=== PATIENT | female | born 1950 | race Caucasian/White ===

== ENCOUNTER → 2017-08-30 | Outpatient (CLI) | payer BC | END | disposition home or self-care (01) | LOC: MAMMO 13:43 | DX: Z12.31 Encounter for screening mammogram for malignant neoplasm of breast (principal) ==

== ENCOUNTER → 2020-03-05 | Outpatient (CLI) | payer MEDICARE | END | disposition home or self-care (01) | LOC: MAMMO 00:28 | PROVIDERS: ATTEND Family Medicine | DX: Z12.31 Encounter for screening mammogram for malignant neoplasm of breast (principal); N64.89 Other specified disorders of breast ==

== ENCOUNTER → 2021-09-30 | Outpatient (CLI) | payer MEDICARE | END | disposition home or self-care (01) | LOC: MAMMO 01:26 | PROVIDERS: ATTEND Internal Medicine | DX: Z12.31 Encounter for screening mammogram for malignant neoplasm of breast (principal) ==

== ENCOUNTER 2022-05-04 20:11 | Emergency (ER) | payer MEDICARE ==
[~2022-05-04] VITALS: Ht 157.4 cm; Wt 85.7 kg
[2022-05-04] MEDS ORDERED: ASPIRIN ADULT L81 M1 PO (20:35)
[2022-05-04] MEDS ORDERED: METOPROLOL SUCC50 M2 PO (20:36)
[2022-05-04] MEDS ORDERED: LISINOPRIL5 MG PO (20:36)
[2022-05-04] MEDS ORDERED: VITAMIN D310 MC3 PO (20:36)
[2022-05-04 21:07] LABS: BASO % 0.2 % (0.0-1.0); EOS % 0.1 % (1.0-4.0); HEMATOCRIT 36.6 % (37.0-47.0); LYMPH # 1.4 10*3/uL (1.3-4.4); LYMPH % 8.5 % (27.0-41.0); MEAN CELL VOLUME 89.1 fl (81.0-99.0); MEAN CORPUSCULAR HGB 29.4 pg (27.0-31.0); MEAN CORPUSCULAR HGB CONC 33.1 g/dl (33.0-37.0); MEAN PLATELET VOLUME 9.7 fl (9.6-12.3); MONO # 0.7 10*3/uL (0.1-1.0); MONO % 3.9 % (3.0-9.0); NEUT # 14.7 10*3/uL (2.3-7.9); NEUT % 86.9 % (47.0-73.0); PLATELET COUNT AUTOMATED 299 10*3/uL (130-400); RED BLOOD COUNT 4.11 10*6/uL (4.10-5.10); RED CELL DISTRI WIDTH 12.8 % (0-14.5); WHITE BLOOD COUNT 16.9 10*3/uL (4.8-10.8)
[2022-05-04 21:39] LABS: ALKALINE PHOSPHATASE 75 U/L (46-116); BUN 14 mg/dl (9-23); CHLORIDE 98 mmol/L (98-107); POTASSIUM 3.6 mmol/L (3.4-5.1); SGPT/ALT 22 U/L (10-49); TOTAL PROTEIN 7.3 gm/dL (6.0-8.0)
[2022-05-04 23:37] LABS: BILIRUBIN Negative (Negative); BLOOD 2+ (Negative); CLARITY Clear (Clear); COLOR Yellow (Yellow); GLUCOSE Negative (Negative); KETONE Trace (Negative); LEUKO ESTERASE Negative (Negative); NITRITE Negative (Negative); PH 6.5 (4.5-8.0); UROBILINOGEN 0.2 E.U./dl (0.0-1.0)
[2022-05-04 23:49] LABS: RBC 16-20 rbc/hpf (0-2); WBC 0-2 wbc/hpf (0-5)
== END 2022-05-05 01:39 | disposition short-term general hospital (02) ==
LOC: ED 20:11
PROVIDERS: Emergency Medicine
DX: N13.2 Hydronephrosis with renal and ureteral calculous obstruction (principal); Z20.822 Contact with and (suspected) exposure to COVID-19; I10 Essential (primary) hypertension; Z79.899 Other long term (current) drug therapy; Z79.82 Long term (current) use of aspirin; Z90.89 Acquired absence of other organs; Z98.51 Tubal ligation status; Z90.710 Acquired absence of both cervix and uterus

== ENCOUNTER → 2022-06-07 | Outpatient (CLI) | payer MEDICARE ==
[~2022-06-07] MED LIST: ASPIRIN ADULT L81 M1 PO; LISINOPRIL5 MG PO; METOPROLOL SUCC50 M2 PO; VITAMIN D310 MC3 PO
== END | disposition home or self-care (01) ==
LOC: RAD 13:59
PROVIDERS: ATTEND Urology
DX: N20.0 Calculus of kidney (principal); Z96.0 Presence of urogenital implants

== ENCOUNTER → 2022-06-28 | Outpatient (CLI) | payer MEDICARE | END | disposition home or self-care (01) | LOC: RAD 11:57 | PROVIDERS: ATTEND Urology | DX: N20.0 Calculus of kidney (principal) ==

== ENCOUNTER → 2022-07-01 | Outpatient (CLI) | payer MEDICARE ==
[2022-07-01 07:50] LABS: BASO % 0.3 % (0.0-1.0); EOS # 0.1 10*3/uL (0.0-0.4); EOS % 1.4 % (1.0-4.0); HEMATOCRIT 37.1 % (37.0-47.0); LYMPH # 1.6 10*3/uL (1.3-4.4); LYMPH % 18.5 % (27.0-41.0); MEAN CELL VOLUME 88.5 fl (81.0-99.0); MEAN CORPUSCULAR HGB 29.8 pg (27.0-31.0); MEAN CORPUSCULAR HGB CONC 33.7 g/dl (33.0-37.0); MEAN PLATELET VOLUME 10.1 fl (9.6-12.3); MONO # 0.5 10*3/uL (0.1-1.0); MONO % 5.5 % (3.0-9.0); NEUT # 6.4 10*3/uL (2.3-7.9); NEUT % 74.2 % (47.0-73.0); PLATELET COUNT AUTOMATED 321 10*3/uL (130-400); RED BLOOD COUNT 4.19 10*6/uL (4.10-5.10); RED CELL DISTRI WIDTH 12.9 % (0-14.5); WHITE BLOOD COUNT 8.7 10*3/uL (4.8-10.8)
[2022-07-01 07:50] LABS: BILIRUBIN Negative (Negative); BLOOD Negative (Negative); CLARITY Clear (Clear); COLOR Yellow (Yellow); GLUCOSE Negative (Negative); KETONE Negative (Negative); LEUKO ESTERASE Trace (Negative); NITRITE Negative (Negative); PH 6.5 (4.5-8.0); SPECIFIC GRAVITY 1.015 (1.001-1.030)
[2022-07-01 08:06] LABS: BACTERIA 1+; EPITHELIAL CELLS 31-40
[2022-07-01 08:07] LABS: ALKALINE PHOSPHATASE 69 U/L (46-116); BUN 11 mg/dl (9-23); CHLORIDE 100 mmol/L (98-107); POTASSIUM 3.8 mmol/L (3.4-5.1); SGPT/ALT 20 U/L (10-49); T3 UPTAKE 25.6 % (22.4-36.7); THYROXINE (T4) TOTAL 8.7 ug/dl (4.5-10.9); TOTAL PROTEIN 7.1 gm/dL (6.0-8.0)
== END | disposition home or self-care (01) ==
LOC: LAB 07:14
PROVIDERS: ATTEND Urology
DX: N20.0 Calculus of kidney (principal); R31.9 Hematuria, unspecified

== ENCOUNTER → 2022-07-04 | Outpatient (CLI) | payer MEDICARE ==
[2022-07-10 22:05] LABS: BUSHITE 0.25 ratio (0.00-3.00); CALCIUM OXALATE 0.64 ratio (0.00-6.00); CALCIUM, URINE 2.5 mg/dL (Not Estab.); CALCIUM, URINE 43.8 mg/24 hr (0.0-320.0); CITRIC ACID (CITRATE) 282 mg/24 hr (320-1240); CREATININE, URINE 41.4 mg/dL (Not Estab.); CREATININE, URINE 724.5 mg/24 hr (800.0-1800.0); MAGNESIUM, URINE 1.4 mg/dL (Not Estab.); OSMOLALITY, URINE 189 (300-900); SODIUM, URINE 35 mmol/L (Not Estab.); SODIUM, URINE 61 (39-258); STRUVITE 0.01 ratio (0.00-1.00); URIC ACID 0.17 ratio (0.00-1.20); pH 24 HR URINE 6.6 (4.5-8.0)
== END | disposition home or self-care (01) ==
LOC: LAB 07:37
PROVIDERS: ATTEND Urology
DX: N20.0 Calculus of kidney (principal); R31.9 Hematuria, unspecified

== ENCOUNTER → 2022-07-27 | Outpatient (CLI) | payer MEDICARE | END | disposition home or self-care (01) | LOC: US 01:06 | PROVIDERS: ATTEND Urology | DX: N28.1 Cyst of kidney, acquired (principal); N20.0 Calculus of kidney; N32.89 Other specified disorders of bladder; Z98.890 Other specified postprocedural states ==

== ENCOUNTER → 2022-09-19 | Day surgery (SDC) | payer MEDICARE ==
[2022-09-16 13:35] VITALS: BP 135/56
[2022-09-16 15:49] LABS: BUN 12 mg/dl (9-23); CHLORIDE 98 mmol/L (98-107); POTASSIUM 4.1 mmol/L (3.4-5.1)
[~2022-09-19] VITALS: Ht 157.4 cm; Wt 78.9 kg
[~2022-09-19] MED LIST changes: +ALLEGRA ALLERGY60 M2 PO; +ANTIVERT25 M2 PO; +FLONASE ALLERG9.9 ML NAS; +FOSAMAX70 M1 PO; +HYDROCODONE-AC1 EAC1 PO; +LIPITOR40 MG PO; +ONDANSETRON HYDR4 M1 PO; +POTASSIUM CITRA5 MEQ PO
[2022-09-19 10:15] VITALS: BP 135/57
[2022-09-19 12:16] VITALS: BP 125/58
[2022-09-19 12:31] VITALS: BP 126/66
[2022-09-19 12:46] VITALS: BP 131/65
[2022-09-19 13:01] VITALS: BP 133/56
[2022-09-19 13:16] VITALS: BP 134/68
== END ==
LOC: SDC 09-16 13:15
PROVIDERS: ATTEND Surgery
DX: K61.2 Anorectal abscess (principal); I10 Essential (primary) hypertension; E78.00 Pure hypercholesterolemia, unspecified

== ENCOUNTER → 2023-01-25 | Outpatient (CLI) | payer MEDICARE | END | disposition home or self-care (01) | LOC: MAMMO 01:46 | PROVIDERS: ATTEND Internal Medicine | DX: Z12.31 Encounter for screening mammogram for malignant neoplasm of breast (principal) ==

== ENCOUNTER → 2023-02-20 | Day surgery (SDC) | payer MEDICARE ==
[~2023-02-20] VITALS: Ht 157.4 cm; Wt 79.4 kg
[2023-02-20 09:17] VITALS: BP 108/87
[2023-02-20 10:40] VITALS: BP 152/69
[2023-02-20 10:55] VITALS: BP 132/59
[2023-02-20 11:10] VITALS: BP 126/56
[2023-02-20 11:25] VITALS: BP 120/76
[2023-02-20 11:40] VITALS: BP 137/54
== END | disposition home or self-care (01) ==
LOC: SDC 02-16 08:45
PROVIDERS: ATTEND Surgery
DX: K60.3 Anal fistula (principal); K60.1 Chronic anal fissure; I10 Essential (primary) hypertension; E78.00 Pure hypercholesterolemia, unspecified; M19.90 Unspecified osteoarthritis, unspecified site; Z79.899 Other long term (current) drug therapy; Z90.710 Acquired absence of both cervix and uterus; Z98.51 Tubal ligation status; Z90.89 Acquired absence of other organs; Z98.890 Other specified postprocedural states

== ENCOUNTER → 2023-05-19 | Outpatient (CLI) | payer MEDICARE | END | disposition home or self-care (01) | LOC: RAD 00:39 | PROVIDERS: ATTEND Internal Medicine Nephrology | DX: N20.0 Calculus of kidney (principal) ==

== ENCOUNTER → 2023-05-22 | Outpatient (CLI) | payer MEDICARE | END | disposition home or self-care (01) | LOC: LAB 01:10 | PROVIDERS: ATTEND Internal Medicine Nephrology | DX: N20.0 Calculus of kidney (principal) ==

== ENCOUNTER → 2024-02-05 | Outpatient (CLI) | payer MEDICARE | END | disposition home or self-care (01) | LOC: MAMMO 05:15 | PROVIDERS: ATTEND Internal Medicine | DX: Z12.31 Encounter for screening mammogram for malignant neoplasm of breast (principal); N63.15 Unspecified lump in the right breast, overlapping quadrants ==

== ENCOUNTER → 2024-02-15 | Outpatient (CLI) | payer MEDICARE | END | disposition home or self-care (01) | LOC: US 01:56 | PROVIDERS: ATTEND Internal Medicine | DX: R92.8 Other abnormal and inconclusive findings on diagnostic imaging of breast (principal) ==

== ENCOUNTER → 2024-03-05 | Outpatient (CLI) | payer MEDICARE ==
[~2024-03-05] MED LIST changes: +SODIUM BICARBONATE 4.2% 5 ML VIAL ONE
[2024-03-05 10:14] LABS: ACT PARTIAL THROMBO TIME 28.8 SECONDS (20.0-32.1)
== END | disposition home or self-care (01) ==
LOC: SDC 04:53 → EDSTATUS 11:00
PROVIDERS: Radiology Diagnostic Radiology; ATTEND Internal Medicine
DX: C50.811 Malignant neoplasm of overlapping sites of right female breast (principal); N64.9 Disorder of breast, unspecified; K92.1 Melena

== ENCOUNTER → 2024-03-27 | Outpatient (CLI) | payer MEDICARE ==
[~2024-03-27] MED LIST changes: -SODIUM BICARBONATE 4.2% 5 ML VIAL ONE
[2024-03-27 12:12] LABS: BASO % 0.5 % (0.0-1.0); EOS # 0.1 10*3/uL (0.0-0.4); EOS % 1.4 % (1.0-4.0); HEMATOCRIT 37.2 % (37.0-47.0); MEAN CELL VOLUME 90.5 fl (81.0-99.0); MEAN CORPUSCULAR HGB 30.2 pg (27.0-31.0); MEAN CORPUSCULAR HGB CONC 33.3 g/dl (33.0-37.0); MEAN PLATELET VOLUME 9.9 fl (9.6-12.3); MONO # 0.6 10*3/uL (0.1-1.0); MONO % 7.5 % (3.0-9.0); NEUT # 4.9 10*3/uL (2.3-7.9); NEUT % 62.8 % (47.0-73.0); PLATELET COUNT AUTOMATED 291 10*3/uL (130-400); RED BLOOD COUNT 4.11 10*6/uL (4.10-5.10); RED CELL DISTRI WIDTH 13.2 % (0-14.5); WHITE BLOOD COUNT 7.8 10*3/uL (4.8-10.8)
[2024-03-27 12:51] LABS: ALKALINE PHOSPHATASE 75 U/L (46-116); BUN 19 mg/dl (9-23); CHLORIDE 99 mmol/L (98-107); POTASSIUM 4.1 mmol/L (3.4-5.1); SGPT/ALT 18 U/L (5-49)
== END | disposition home or self-care (01) ==
LOC: LAB 03:58 → US 03:58
PROVIDERS: ATTEND Internal Medicine Medical Oncology
DX: M25.841 Other specified joint disorders, right hand (principal); C50.411 Malignant neoplasm of upper-outer quadrant of right female breast

== ENCOUNTER → 2024-06-14 | Outpatient (CLI) | payer MEDICARE | END | disposition home or self-care (01) | LOC: RAD 01:31 | PROVIDERS: ATTEND Internal Medicine Medical Oncology | DX: Z13.820 Encounter for screening for osteoporosis (principal); C50.411 Malignant neoplasm of upper-outer quadrant of right female breast; Z78.0 Asymptomatic menopausal state ==

== ENCOUNTER → 2024-08-05 | Outpatient (CLI) | payer MEDICARE ==
[2024-08-05 08:56] LABS: ALKALINE PHOSPHATASE 74 U/L (46-116); BUN 9 mg/dl (9-23); CHLORIDE 99 mmol/L (98-107); SGPT/ALT 17 U/L (5-49); TOTAL PROTEIN 7.2 gm/dL (6.0-8.0)
== END | disposition home or self-care (01) ==
LOC: LAB 01:04
PROVIDERS: ATTEND Internal Medicine Nephrology
DX: N20.0 Calculus of kidney (principal); N18.31 Chronic kidney disease, stage 3a

== ENCOUNTER → 2024-11-13 | Outpatient (CLI) | payer MEDICARE | END | disposition home or self-care (01) | LOC: MAMMO 01:20 | PROVIDERS: ATTEND Surgery | DX: R92.331 Mammographic heterogeneous density, right breast (principal); C50.511 Malignant neoplasm of lower-outer quadrant of right female breast ==

== ENCOUNTER → 2025-01-09 | Outpatient (CLI) | payer MEDICARE | END | disposition home or self-care (01) | LOC: MAMMO 03:51 | PROVIDERS: ATTEND Surgery | DX: R92.313 Mammographic fatty tissue density, bilateral breasts (principal); C50.511 Malignant neoplasm of lower-outer quadrant of right female breast ==

== ENCOUNTER → 2025-03-31 | Outpatient (CLI) | payer MEDICARE ==
[2025-03-31 11:50] LABS: BASO # 0.0 10*3/uL (0.0-0.1); BASO % 0.6 % (0.0-1.0); EOS # 0.1 10*3/uL (0.0-0.4); EOS % 1.4 % (1.0-4.0); MEAN CELL VOLUME 91.1 fl (81.0-99.0); MEAN CORPUSCULAR HGB 29.6 pg (27.0-31.0); MEAN PLATELET VOLUME 9.7 fl (9.6-12.3); MONO # 0.6 10*3/uL (0.1-1.0); MONO % 8.5 % (3.0-9.0); NEUT # 4.8 10*3/uL (2.3-7.9); NEUT % 66.7 % (47.0-73.0); NUCLEATED RED BLOOD CELL 0.0 % (0.0-0.0); NUCLEATED RED BLOOD CELL 0.0 10*3/uL (0.0-0.0); PLATELET COUNT AUTOMATED 293 10*3/uL (130-400); RED CELL DISTRI WIDTH 13.2 % (0-14.5)
[2025-03-31 12:26] LABS: BUN 17 mg/dl (9-23); FREE T4 1.05 ng/dl (0.89-1.76); LDL CHOLESTEROL 71 mg/dL (9-159); SGPT/ALT 17 U/L (5-49)
[2025-03-31 12:27] LABS: VITAMIN D, 25-HYDROXY 65.7 ng/mL (30-100)
== END | disposition home or self-care (01) ==
LOC: LAB 11:18
PROVIDERS: ATTEND Internal Medicine
DX: R06.09 Other forms of dyspnea (principal); I10 Essential (primary) hypertension; M47.814 Spondylosis without myelopathy or radiculopathy, thoracic region; E55.9 Vitamin D deficiency, unspecified